=== PATIENT | male | born 1985 | race Caucasian/White ===

== ENCOUNTER 2022-06-24 11:56 | Inpatient (IN) | payer BC ==
[~2022-06-24] VITALS: Ht 170.2 cm; Wt 77.1 kg
[2022-06-24 12:07] VITALS: BP 138/82
[2022-06-24] MEDS ORDERED: ACETAMINOPHEN EXTRA STRENGTH 500 MG TAB PO ONE (12:10)
--- NOTE | 2022-06-24 12:11 | NUR ---
PT W/C ASSISTED TO ER BED 3
--- NOTE | 2022-06-24 12:17 | NUR ---
36M presents to ED with c/o abscess to right lower leg x3days. Pt reports a constant aching like 9/10 pain to head and right leg worsening with movement. Pt reports white discharge from abscess. Presents to ED with temp of 102. Pt reports mid back pressure [id number], denies trauma/injury. Pt's respirations are even and unlabored. Pt changed into gown, placed on bedside monitor, bed set at lowest position, side rails x2.
[2022-06-24] MEDS ORDERED: VANCOMYCIN 1,000 MG in DEXTROSE 5% 250 ML IV ONE (12:20)
[2022-06-24] MEDS ORDERED: NACL 0.9% 1,000 ML IV ONE (12:20)
--- NOTE | 2022-06-24 12:40 | NUR ---
Xray at bedside.
[2022-06-24 13:17] LABS: BASOPHILS % (AUTO) 0.1 % (0.0-2.0); HEMATOCRIT 35.3 % (36-52); HEMOGLOBIN 12.1 g/dL (12.0-18.0); LYMPHOCYTES # (AUTO) 0.5 K/uL (2.0-11.5); LYMPHOCYTES % (AUTO) 2.3 % (20.5-51.1); MEAN CORPUSCULAR HEMOGLOBIN 30 pg (27-31); MEAN CORPUSCULAR HGB CONC 34 g/dL (33-37); MEAN CORPUSCULAR VOLUME 87.9 fL (80-94); MONOCYTES # (AUTO) 1.1 K/uL (0.8-1.0); MONOCYTES % (AUTO) 4.9 % (1.7-9.3); NEUTROPHILS % (AUTO) 92.7 % (42.2-75.2); PLATELET COUNT (AUTO) 150 K/uL (140-450); RED BLOOD CELL COUNT(AUTO) 4.02 MIL/uL (4.20-6.10); RED CELL DISTRIBUTION WIDTH 12.2 % (11.6-13.7); WHITE BLOOD COUNT (AUTO) 22.6 K/uL (4.8-10.8)
[2022-06-24 13:32] LABS: PROTHROMBIN TIME 20.5 secs (10.8-13.4)
[2022-06-24 13:40] LABS: ANION GAP 12.4 (8-16); ASPARTATE AMINOTRANSFERASE 47 U/L (15-37); CARBON DIOXIDE 26.2 mmol/L (21-32); CHLORIDE 96 mmol/L (98-107); CREATININE 0.8 mg/dL (0.6-1.3); GFR ARICAN-AMERICAN 141 mL/min (>90); GLUCOSE 149 mg/dL (74-106); POTASSIUM 3.6 mmol/L (3.5-5.1); SODIUM SERUM 131 mmol/L (136-145); TOTAL BILIRUBIN 2.1 mg/dL (0.0-1.0); UREA NITROGEN, BLOOD 13 mg/dL (7-18)
[2022-06-24] MEDS ORDERED: VANCOMYCIN 1,000 MG VIAL ONE ×2 (13:40→22:21)
[2022-06-24] MEDS ORDERED: IBUPROFEN 600 MG TAB PO ONE (16:20)
[2022-06-24] MEDS ORDERED: MAG SULF 2000 MG/WATER PREMIX 50 ML IV PRN (16:40)
[2022-06-24] MEDS ORDERED: ONDANSETRON 4 MG/2 ML VIAL IVP PRN (16:40)
[2022-06-24] MEDS ORDERED: MORPHINE SULFATE 4 MG/ML SYR IVP PRN (16:40)
[2022-06-24] MEDS ORDERED: MAGNESIUM OXIDE 400 MG TAB PO PRN (16:40)
[2022-06-24] MEDS ORDERED: KCL 20 MEQ/WATER INJ PREMIX 200 ML IV PRN (16:40)
[2022-06-24] MEDS ORDERED: VANCOMYCIN PER PHARMACY MC PRN (16:40)
[2022-06-24] MEDS ORDERED: POTASSIUM CHLORIDE 10 MEQ TABER PO PRN (16:40)
--- NOTE | 2022-06-24 16:54 | NUR ---
Patient will be admitted to care of Dr. Argueta. Admited to Med/Surg. Will go to room 111A. Belongings list completed. Report to DOMINIQUE Montanez.
[2022-06-24 16:55] LABS: APPEARANCE,URINE CLEAR (CLEAR); BILIRUBIN,URINE NEGATIVE (NEGATIVE); BLOOD, URINE NEGATIVE (NEGATIVE); COLOR,URINE YELLOW (YELLOW); LEUKOCYTE ESTERASE ,URINE NEGATIVE (NEGATIVE); NITRITE, URINE NEGATIVE (NEGATIVE); PH,URINE 6.5 (5.0-9.0); UGLUCOSE NEGATIVE (NEGATIVE)
--- NOTE | 2022-06-24 17:00 | NUR ---
RECEIVED REPORT FROM ER NURSE FOR CONTINUITY OF CARE. PT IS STABLE UPON TRANSPORT TO UNIT. NO SIGNS OF DISTRESSED OR LABORED BREATHING. PT CAM IN FOR R LEG SWELLING/ABSCESS AND FEVER. PT IS A&OX4, SKIN IS INTACT EXCEPT R LEG SWELLING AND PAIN. PT IS ABLE TO AMBULATE SHORT DISTANCES, USES URINAL, IS ON ROOM AIR AND HAS A FEVER OF 101.7. COOLING MEASURE STARTED AND MEDICATION ADMINISTERED. PT HAS AN 18G IV IN HIS R UPPER ARM THAT HAS NS AT 80ML/HR. ALL SAFETY MEASURES IN PLACE INCLUDING CALL LIGHT WITHIN REACH AND BED IN LOW POSITION. WILL CONTINUE TO MONITOR.
[2022-06-24 17:06] LABS: BENZODIAZEPINE, URINE NEGATIVE ng/mL (NEG <=200); CANNABINOID, URINE NEGATIVE ng/mL (NEG <=50); COCAINE, URINE NEGATIVE ng/mL (NEG <=300); OPIATE, URINE NEGATIVE ng/mL (NEG <=2000); PHENCYCLIDINE SCREEN,URINE NEGATIVE ng/mL (NEG <=25)
[2022-06-24 17:07] LABS: BARBITURATE, URINE NEGATIVE ng/ml (NEG <=200)
[2022-06-24 17:09] LABS: RBC,URINE 0-5 /HPF (0-5); WBC,URINE NONE SEEN /HPF (0-5)
[2022-06-24] MEDS: NACL 0.9% 1,000 ML IV SCH (17:14)
[2022-06-24] MEDS: HYDROcodone/APAP 5/325 MG 1 TAB TAB PO PRN (17:14)
[2022-06-24 18:00] VITALS: BP 114/59
--- NOTE | 2022-06-24 19:22 | NUR ---
ENDORSED PT TO DIRECTOR INSTRUCTIONAL MATERIAL NURSE FOR CONTINUITY OF CARE. PT STABLE AT THIS TIME
[2022-06-24] MEDS ORDERED: VANCOMYCIN 1GM/DEXT 5% PREMIX 200 ML IV ONE (22:00)
[2022-06-24] MEDS: ACETAMINOPHEN 325 MG TAB PO PRN (23:48)
--- NOTE | 2022-06-24 23:48 | NUR ---
PT COMPLAINTS OF HEADACHE, TYLENOL ADMINISTERED ORDER.
[2022-06-25] VITALS: BP 119/65
--- NOTE | 2022-06-25 01:48 | NUR ---
PT IS ASLEEP. NO FACIAL GRIMACING NOTED.
[2022-06-25 04:00] VITALS: BP 122/77
--- NOTE | 2022-06-25 07:36 | NUR ---
06/25/2022 0736: RECEIVED PT FROM VIKI FOX. PT RESTING IN BED EYES CLOSED. NO GUARDING OR GRIMACING NOTED. NO ACUTE DISTRESS NOTED AT THIS TIME. [id number].
--- NOTE | 2022-06-25 07:40 | NUR ---
PT IS ON STABLE CONDITION. PT DENIES OF PAIN OR DISCOMFORT. ALL SAFETY MEASURES ARE IN PLACE. ENDORSED TO DAY SHIFT NURSE FOR CONTINUITY OF CARE.
[2022-06-25 08:00] VITALS: BP 122/86
--- NOTE | 2022-06-25 09:10 | NUR ---
PATIENT HAS BEEN SCREENED AND CATEGORIZED LOW NUTRITION RISK. PATIENT WILL BE SEEN WITHIN 7 DAYS OF ADMISSION. 07/01/[address] REVIEWED BY SERENA HUNT RD
[2022-06-25] MEDS: DOCUSATE SODIUM 100 MG GELCAP PO SCH (09:31)
[2022-06-25 12:00] VITALS: BP 122/86
[2022-06-25] MEDS: VANCOMYCIN 1,500 MG in DEXTROSE 5% 500 ML IV SCH ×2 (12:44→21:19)
--- NOTE | 2022-06-25 13:09 | NUR ---
06/25/2022 0800: RECEIVED PT FROM VIKI FOX. PT RESTING IN BED. NO GUARDING OR GRIMACING. NO ACUTE DISTRESS NOTED AT THIS TIME. [id number].
--- NOTE | 2022-06-25 14:07 | NUR ---
WOUND CARE NOTE: PER CHARGE NURSE SUKHJINDER'S REQUEST RLE CELLULITIS ASSESSED. NO OPEN WOUND, BELOW KNEE AREA A DRY 1X1 BROWN SCAB WITH WOUND EDGE WEEPING SMALL AMOUNT SEROUS DRAINAGE, KERI WOUND SKIN INTACT, NO INDURATION, NO PAIN. PER PT. SWELLING AND ERYTHEMA HAS DECREASING A LOT. WOUND CX RESULT PENDING AT THIS TIME. POC DISCUSSED WITH PT. PT. VERBALIZES UNDERSTANDING. -CLEANSE RLE WOUND WITH NS, PAT DRY , APPLY ALGINATE DRESSING AND COVER WITH DRY DRESSING 3X/WEEK ON MWF.
--- NOTE | 2022-06-25 15:45 | NUR ---
DC PLANNING ASSESSMENT COMPLETE SEE ASSESSMENT FOR DETAILS PT REPORTS TENTATIVE DC PLAN IS TO POSSIBLY STAY WITH HIS FATHER OR RETURN TO THE AREA IN WHICH HE FREQUENTS ON [address] IN [place] WITH HIS FRIEND, ONCE CLEARED FOR DC. Addendum: 06/25/22 at 1545 by Ubaldo Coffey SS Amended: Links added.
[2022-06-25 16:00] VITALS: BP 123/75
[2022-06-25] MEDS: ACETAMINOPHEN 325 MG TAB PO PRN (16:20)
[2022-06-25 17:52] LABS: BASOPHILS % (AUTO) 0.2 % (0.0-2.0); HEMATOCRIT 35.1 % (36-52); HEMOGLOBIN 12.1 g/dL (12.0-18.0); LYMPHOCYTES # (AUTO) 0.8 K/uL (2.0-11.5); LYMPHOCYTES % (AUTO) 5.3 % (20.5-51.1); MEAN CORPUSCULAR HEMOGLOBIN 30 pg (27-31); MEAN CORPUSCULAR HGB CONC 35 g/dL (33-37); MEAN CORPUSCULAR VOLUME 88.1 fL (80-94); MONOCYTES # (AUTO) 0.8 K/uL (0.8-1.0); MONOCYTES % (AUTO) 5.6 % (1.7-9.3); NEUTROPHILS # (AUTO) 13.2 K/uL (1.8-7.7); NEUTROPHILS % (AUTO) 88.9 % (42.2-75.2); PLATELET COUNT (AUTO) 175 K/uL (140-450); RED BLOOD CELL COUNT(AUTO) 3.99 MIL/uL (4.20-6.10); RED CELL DISTRIBUTION WIDTH 12.5 % (11.6-13.7); WHITE BLOOD COUNT (AUTO) 14.9 K/uL (4.8-10.8)
[2022-06-25 18:08] LABS: ALBUMIN 3.4 g/dL (3.4-5.0); ANION GAP 8.9 (8-16); CARBON DIOXIDE 28.7 mmol/L (21-32); CREATININE 0.8 mg/dL (0.6-1.3); MAGNESIUM 1.4 mg/dL (1.8-2.4); POTASSIUM 3.6 mmol/L (3.5-5.1)
--- NOTE | 2022-06-25 19:30 | NUR ---
[id number] ENDORSEMENT FROM DAY SHIFT NURSE. PT IS ON BED AWAKE AND VERBALLY RESPONSIVE. IV SITE ON RIGHT AC INTACT AND PATENT. INFUSING NORMAL SALINE AT 80ML/HR.
[2022-06-25 20:00] VITALS: BP 105/59
[2022-06-25] MEDS: HYDROcodone/APAP 5/325 MG 1 TAB TAB PO PRN (21:25)
--- NOTE | 2022-06-25 21:25 | NUR ---
PT COMPLAINTS OF HEADACHE AND BODY ACHE /, PAIN MEDICATION NORCO ADMINISTERED ORDERED.
--- NOTE | 2022-06-26 00:42 | NUR ---
PT MAGNESIUM LEVEL IS 1.4, ADMINISTER MAG RIDER PER ORDER.
--- NOTE | 2022-06-26 02:35 | NUR ---
PT COMPLAINTS OF NAUSEA, NAUSEA MEDICATION, ZOFRAN ADMINISTERED ORDER.
[2022-06-26 04:00] VITALS: BP 102/58
[2022-06-26] MEDS: HYDROcodone/APAP 5/325 MG 1 TAB TAB PO PRN (05:41)
--- NOTE | 2022-06-26 05:41 | NUR ---
PT COMPLAINTS OF RIGHT LEG PAIN 10/20, PAIN MEDICATION NORCO ADMINISTERED ORDER.
--- NOTE | 2022-06-26 07:12 | NUR ---
ASSUMED CONTINUITY OF CARE. INITIAL ASSESSMENT DONE. ELEVATED RLE WITH PILLOWS. CALL LIGHT WITHIN REACH.
[2022-06-26 07:24] LABS: ALBUMIN 3.2 g/dL (3.4-5.0); ANION GAP 12.4 (8-16); CARBON DIOXIDE 25.1 mmol/L (21-32); CREATININE 0.7 mg/dL (0.6-1.3); MAGNESIUM 1.8 mg/dL (1.8-2.4); POTASSIUM 3.5 mmol/L (3.5-5.1); TOTAL BILIRUBIN 1.5 mg/dL (0.0-1.0)
[2022-06-26] MEDS: NACL 0.9% 1,000 ML IV SCH (07:42)
[2022-06-26 08:00] VITALS: BP 103/61
[2022-06-26 08:08] LABS: HEPATITIS B SURFACE ANTIBODY Reactive (.); HEPATITIS B SURFACE ANTIGEN Negative (Negative)
[2022-06-26 09:12] LABS: BASOPHILS % (AUTO) 0.2 % (0.0-2.0); EOSINOPHILS % (AUTO) 0.2 % (0.0-4.0); HEMATOCRIT 34.4 % (36-52); HEMOGLOBIN 11.8 g/dL (12.0-18.0); LYMPHOCYTES # (AUTO) 1.2 K/uL (2.0-11.5); LYMPHOCYTES % (AUTO) 9.1 % (20.5-51.1); MEAN CORPUSCULAR HEMOGLOBIN 30 pg (27-31); MEAN CORPUSCULAR HGB CONC 34 g/dL (33-37); MEAN CORPUSCULAR VOLUME 87.3 fL (80-94); MONOCYTES # (AUTO) 1.1 K/uL (0.8-1.0); MONOCYTES % (AUTO) 8.4 % (1.7-9.3); NEUTROPHILS # (AUTO) 10.9 K/uL (1.8-7.7); NEUTROPHILS % (AUTO) 82.1 % (42.2-75.2); PLATELET COUNT (AUTO) 195 K/uL (140-450); RED BLOOD CELL COUNT(AUTO) 3.94 MIL/uL (4.20-6.10); RED CELL DISTRIBUTION WIDTH 12.7 % (11.6-13.7); WHITE BLOOD COUNT (AUTO) 13.3 K/uL (4.8-10.8)
[2022-06-26] MEDS: DOCUSATE SODIUM 100 MG GELCAP PO SCH (09:35)
--- NOTE | 2022-06-26 10:10 | NUR ---
BETITO BURGESS FROM PHARMACY REGARDING PT. VANCO TROUGH RESULTS AND DOSING.
[2022-06-26] MEDS: VANCOMYCIN HCL 1.25 GM in DEXTROSE 5% 250 ML IV SCH ×2 (10:34→18:17)
[2022-06-26] MEDS: SODIUM CHLORIDE 1 GM TAB PO SCH ×2 (12:25→16:38)
[2022-06-26] MEDS ORDERED: CHLORHEXADINE GLUC 2% CLOTH TP SCH (13:00)
[2022-06-26] MEDS ORDERED: MUPIROCIN CA NASAL 2% 1GM TUBE NS SCH (13:00)
[2022-06-26 16:00] VITALS: BP 99/57
[2022-06-26] MEDS: ACETAMINOPHEN 325 MG TAB PO PRN (16:52)
--- NOTE | 2022-06-26 19:29 | NUR ---
REPORT GIVEN TO YANI EVANGELISTA. IN STABLE CONDITION. IVF INFUSING WELL.
--- NOTE | 2022-06-26 19:55 | NUR ---
PATIENT AWAKE ALERT ORIENTED RESTING IN BED. VISITOR AT BEDSIDE. PT ON ROOM AIR. AMBULATORY. NO DISTRESS NOTED. IV ACCESS ON THE ASHLEIGH SALINE LOCK. NO COMPLAINTS OF PAIN AT THIS TIME. CALL LIGHT WITHIN REACH. SAFETY MEASURES IN PLACE.
--- NOTE | 2022-06-26 20:38 | NUR ---
SCHEDULED MEDICATION DUE GIVEN.
[2022-06-27] MEDS: VANCOMYCIN HCL 1.25 GM in DEXTROSE 5% 250 ML IV SCH (02:06)
--- NOTE | 2022-06-27 07:00 | NUR ---
PER YULIANA IN THE LAB, PATIENT REFUSED TO DRAW BLOOD AT 0500 AND WOULD PREFER TO GET IT DONE BY 1000
--- NOTE | 2022-06-27 07:15 | NUR ---
ENDORSED PATIENT TO AN RN JEANCARLOS FOR CONTINUITY OF CARE.
--- NOTE | 2022-06-27 07:30 | NUR ---
RECEIVED REPORT FROM BOLT LOADER NURSE FOR CONTINUITY OF CARE, POC DISCUSSED. PT IS SITTING UP IN BED ON HIS CELL PHONE ON RA WITH CHEST RISING AND FALLING EVEN AND UNLABORED. ON CONTACT ISO FOR MRSA NARES. ALL SAFETY MEASURES IN PLACE, CALL LIGHT WITHIN REACH. WILL CONTINUE TO MONITOR.
[2022-06-27] MEDS ORDERED: ACET-9525 PO (08:35)
[2022-06-27] MEDS ORDERED: SODI100076 PO (08:35)
[2022-06-27] MEDS ORDERED: CLIN300C2 PO (08:36)
[2022-06-27] MEDS ORDERED: SODIUM CHLORIDE 1 GM TAB PO SCH (09:00)
--- NOTE | 2022-06-27 09:00 | NUR ---
MAIKEL MORNING MEDICATION ADMINISTERED PER MD ORDER, PT TOLERATED ADMINISTRATION. PT FRIEND AT BEDSIDE. PT STATED HE IS GOING TO A FRIENDS HOUSE AFTER DISCHARGE AND HIS FRIEND WILL DRIVE HIM. PT REQUESTING TO SHOWER, EDUCATED ON ISOLATION AND UNABLE TO USE THE SHOWER. PT VERBALIZED UNDERSTANDING. ALL SAFETY MEASURES IN PLACE, CALL LIGHT WITHIN REACH. WILL CONTINUE TO MONITOR.
[2022-06-27] MEDS: DOCUSATE SODIUM 100 MG GELCAP PO SCH (09:19)
[2022-06-27] MEDS: SODIUM CHLORIDE 1 GM TAB PO SCH (09:20)
--- NOTE | 2022-06-27 10:37 | NUR ---
FULL EDUCATION REGARDING DISCHARGE PROVIDED. IV REMOVED, ID BAND REMOVED, ALL QUESTIONS ANSWERED. ALL BELONGINGS IN POSSESSION, PT IS STABLE.
--- NOTE | 2022-06-27 10:46 | NUR ---
PT HAS BEEN WALKED OUT WITH ALL HIS POSSESSIONS IN STABLE CONDITION. MOOD IS HAPPY. STATES ALL NEEDS HAVE BEEN MET.
[2022-06-27] MEDS ORDERED: ALGINATE DRESSING MC SCH (13:00)
== END 2022-06-27 10:46 | disposition home or self-care (01) | DRG 872 ==
LOC: MED 11:56 → MMU 16:41 → MTU 16:51
PROVIDERS: ADMIT Hospitalist; ATTEND Hospitalist
DX: A41.9 Sepsis, unspecified organism (principal); L03.115 Cellulitis of right lower limb; E87.1 Hypo-osmolality and hyponatremia; F17.210 Nicotine dependence, cigarettes, uncomplicated; E86.1 Hypovolemia; Z20.822 Contact with and (suspected) exposure to COVID-19; E66.9 Obesity, unspecified; R74.01 Elevation of levels of liver transaminase levels; Z68.26 Body mass index [BMI] 26.0-26.9, adult
CPT/HCPCS: 36415; 71045; 76705; 80053; 80202; 80305; 81001; 83605; 83735; 83930; 83935; 84300; 84484; 85025; 85610; 85730; 86706; 86804; 87040; 87081; 87340; 87522; 93005; 96365; 96366; 99291; J1644; J2405; J3370; J3475; J7060; Q0092

== ENCOUNTER 2022-11-03 12:35 | Emergency (ER) | payer BC ==
[~2022-11-03] VITALS: Ht 172.7 cm; Wt 96.2 kg
[~2022-11-03 12:35] MED LIST: ACET-9525 PO; CLIN300C2 PO; SODI100076 PO
[2022-11-03 12:46] VITALS: BP 129/80; PULSE 110; RESP 20; TEMP 98; O2SAT 99
[2022-11-03] MEDS ORDERED: MORPHINE SULFATE 4 MG/ML SYR IVP ONE (13:05)
--- NOTE | 2022-11-03 13:18 | NUR ---
UNABLE TO START IV ACCESS, MADE AWARE
--- NOTE | 2022-11-03 13:34 | NUR ---
DR DICKSON AT BEDSIDE SPEAKING TO THE PT, PER MD CANCEL ALL LABS
[2022-11-03] MEDS ORDERED: ACET-10509 PO (13:37)
[2022-11-03] MEDS ORDERED: SULF-58 PO (13:37)
[2022-11-03] MEDS ORDERED: CEPH500T PO (13:37)
[2022-11-03 13:42] VITALS: O2SAT 99
--- NOTE | 2022-11-03 13:45 | NUR ---
Patient discharged with v/s stable. Written and verbal after care instructions given and explained. Patient alert, oriented and verbalized understanding of instructions. Ambulatory with steady gait. All questions addressed prior to discharge. ID band removed. Patient advised to follow up with PMD. Rx of BACTRIM 400-80, TYLENOL EXTRA STRENGTH AND KEFLEX given. Patient educated on indication of medication including possible reaction and side effects. Opportunity to ask questions provided and answered.
--- NOTE | 2022-11-03 13:45 | NUR ---
ATTEMPTED TO WRAP LEFT LEG AND DO DRESSING, PT STATES THAT HE IS NOT WILLING TO WAIT AND WALKED OUT OF THE ED
== END 2022-11-03 13:44 | disposition home or self-care (01) ==
LOC: MED 12:35
DX: L03.116 Cellulitis of left lower limb (principal); R21 Rash and other nonspecific skin eruption; F15.90 Other stimulant use, unspecified, uncomplicated; Z79.899 Other long term (current) drug therapy
CPT/HCPCS: 93971; 99284; Q0092